=== PATIENT | female | born 1985 | race Caucasian/White ===

== ENCOUNTER → 2019-05-16 16:43 | Outpatient (CLI) | payer OTHER, SELFPAY ==
[2019-05-22 16:17] LABS: HPV Reflexed? NOT INDICATED
== END ==
PROVIDERS: Visit Provider Obstetrics & Gynecology
DX: Z12.4 Encounter for screening for malignant neoplasm of cervix (principal)
CPT/HCPCS: 87624; 88175; G0145

== ENCOUNTER 2024-07-12 06:23 | Day surgery (SDC) | payer BC, SELFPAY ==
--- NOTE | 2024-06-26 18:02 | HP.PCM_ITS ---
History and Physical Date of Admission: 07/12/24 HPI: The patient is a 38 year old female presenting for pre-operative visit. She is scheduled for TLH, bilateral salpingectomy and cystoscopy, for chronic pelvic pain and dysmenorrhea on 07/12/24. Procedure discussed along with risks, benefits and complications. Other alternatives discussed for management. Consent form signed? Yes. PAST MEDICAL HISTORY PAST MEDICAL HISTORY Diagnosis Date ? Adenomyosis of the uterus 02/2024 ? Constipation ? Diarrhea ? Endocervical polyp 02/2024 ? Female infertility unexplained ? GERD (gastroesophageal reflux disease) ? Hemorrhoid ? History of back problems ? Kidney stones ? Osteoarthritis of multiple joints ? Rectal bleeding ? Sciatica ? 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 BREAST LUMPECTOMY HX Left 2015 ? COLONOSCOPY 05/09/2024 ? KIDNEY STONE SURGERY HX 2017 ? TONSILLECTOMY & ADENOIDECTOMY <AGE 10 CURRENT MEDICATIONS Current Outpatient Medications Medication Sig Dispense Refill ? loratadine (CLARITIN) 10 mg tablet ? MULTIVITAMIN ORAL Take by mouth once daily. ? ibuprofen (ADVIL ORAL) Take by mouth as needed (pain). ? ibuprofen/diphenhydramine cit (ADVIL PM ORAL) Take by mouth as needed. ? scopolamine (TRANSDERM-SCOP) patch 1.5 mg/72 hr (delivers 1 mg over 3 days) Apply 1 Patch as directed every 72 hours. (Patient not taking: Reported on 05/21/2024) 1 Patch 0 ? Surgical Lubricant Jelly gel For MRI Female Pelvis, MRI department to provide. Administer intra-vaginal Surgilube immediately prior the MRI procedure (total amount to patient toleranace). (Patient not taking: Reported on 05/21/2024) 31 g 0 ? Lactobacillus acidophilus (FLORAJEN ACIDOPHILUS ORAL) Take 1 tablet by mouth once daily. (Patient not taking: Reported on 05/21/2024) No current facility-administered medications for this visit. ALLERGIES: Codeine, Percocet [Oxycodone-Acetaminophen], Vicodin [Hydrocodone- Acetaminophen], and Ciprofloxacin PERSONAL HISTORY: SOCIAL HISTORY Social History Tobacco Use ? Smoking status: Former Current packs/day: 0.00 Types: Cigarettes Quit date: 2011 Years since quittin.8 ? Smokeless tobacco: Never Vaping Use ? Vaping status: Never Used Substance Use Topics ? Alcohol use: Not Currently ? Drug use: Never FAMILY HISTORY: FAMILY HISTORY FAMILY HISTORY Problem Relation Age of Onset ? Heart Mother Afib REVIEW OF SYMPTOMS: GENERAL: denies fevers or chills ENDOCRINOLOGY: has not been on steroids Cardiology : denies palpitations or chest pain Respiratory: denies SOB or cough Hematology: denies history of prolonged bleeding or easy bruising or VTE Allergy: Denies history of personal or family history of allergy to anesthesia PHYSICAL EXAMINATION: VITALS: Blood pressure 110/60, pulse (!) 58, resp. rate 16, height 167.6 cm (5' 6), weight 63.5 kg (140 lb), last menstrual period 06/12/2024, SpO2 99%. GENERAL: The patient is well nourished, well hydrated in no acute distress. , The patient is oriented to time, place, and person. NECK: Supple. No lynphadenopathy, normal thyroid, no thyromegaly. LUNGS: Clear to auscultation bilaterally. no wheezes, rhonchi or rales HEART: Regular rate and rhythm, Normal heart sounds, and No murmurs or gallops Pelvic US 723: Uterus Uterus: Visualized Uterus position: anteverted Description of uterine malformations: sub-septate Myometrium: heterogeneous Endometrium: normal Cervix details: polyp noted, several large cystic lesions identified suggesting superficial Nabothian cysts Uterus length 79 mm Uterus width 52 mm Uterus height 34 mm Uterus Vol 71.4 cm? Endometrial thickness, total 3.6 mm Fibroids: No fibroids identified Polyps: Polyps identified Uterine polyp D1 12 mm Uterine polyp D2 9 mm Uterine polyp D3 6 mm Uterine polyp mean 9.0 mm Doppler: vascular flow visualized Uterine polyp findings: Anterior cervix Uterine polyp D1 11 mm Uterine polyp D2 9 mm Uterine polyp D3 7 mm Uterine polyp mean 9.0 mm Doppler: vascular flow visualized Uterine polyp findings: Anterior cervix Right Ovary Rt ovary: Visualized Rt ovary morphology: premenopausal normal follicular Rt ovary D1 28 mm Rt ovary D2 17 mm Rt ovary D3 14 mm Rt ovary Vol 3.4 cm? Rt ovarian cyst(s): No cysts identified Rt ovarian follicle D1 11.5 mm Rt ovarian follicle D2 14.6 mm Rt ovarian follicle mean 13.0 mm Rt ovarian follicle vol 1.006 cm? Left Ovary Lt ovary: Visualized Lt ovary morphology: premenopausal normal follicular Lt ovary D1 30 mm Lt ovary D2 15 mm Lt ovary D3 15 mm Lt ovary Vol 3.5 cm? Lt ovarian cyst(s): No cysts identified EMB done, benign endometrial polyp 05/21/24 Pap and HPV neg 03/05/24 IMPRESSION: dysmenorrhea, adenomyosis, septate uterus, chronic pelvic pain PLAN: The risks/benefits/alternatives and personal involved for the planned TLH, bilateral salpingectomy, cystoscopy were reviewed with the patient. Her questions were answered to her satisfaction and she desires to proceed. Consent was signed. I reviewed with her postop instructions and expectations. Pain prescriptions sent to pharmacy at preop. I have reviewed and updated past medical and surgical history, medications and allergies Assessment & Plan Assessment/Plan (1) Dysmenorrhea: (2) Adenomyosis: (3) Septate uterus: (4) Chronic female pelvic pain:
[2024-07-02 07:23] LABS: Hemoglobin 13.9 g/dL (12.0-15.0); Mean Corp Hgb Conc 34.8 g/dL (32-36); Mean Corpuscular Hgb 31.9 pg (27.0-32.0); Mean Corpuscular Volume 91.7 fL (81-99); Mean Platelet Vol. 9.2 fl (6.2-12.0); Platelet Count 220 K/mm3 (150-450); RBC Distribution Width CV 11.9 % (11.6-14.6); RBC Distribution Width SD 40.3 fl (35.1-43.9); Red Blood Count 4.36 M/mm3 (4.2-5.4)
[2024-07-02 08:01] LABS: Anion Gap 5 (5-15); BUN 9 mg/dL (7-18); BUN/Creat Ratio 13.9 RATIO (10-20); Calcium,Total 9.1 mg/dL (8.5-10.1); Chloride 110 mmol/L (98-107); Creatinine, Serum 0.65 mg/dL (0.55-1.02); EST Glomerular Filtration Rate 108 mL/min (>60); Est Glom Filt Rate - Afr Amer 130 mL/min (>60); Glucose 107 mg/dL (74-106); Potassium 4.2 mmol/L (3.5-5.1); Sodium Level 139 mmol/L (136-145)
[2024-07-02 09:15] LABS: Magnesium 2.2 mg/dL (1.6-2.6)
[2024-07-12] VITALS (20 sets, daily range): BP systolic 103–130; BP diastolic 45–87; PULSE 60–123; RESP 11–18; TEMP 36.1–36.9; O2SAT 95–100; BMI 23.4
[2024-07-12] MEDS: Lactated Ringers 1,000 ML 15 ML IV (06:48)
[2024-07-12] MEDS: Magnesium 1 GM over 15 mins IV (06:57)
[2024-07-12] MEDS: Phenazopyridine 95 MG Tablet 190 MG PO (07:02)
[2024-07-12] MEDS: Celecoxib 200 MG Capsule 400 MG PO (07:02)
[2024-07-12] MEDS: Acetaminophen 500 MG Tablet 1000 MG PO (07:02)
[2024-07-12] MEDS: Scopolamine 1mg/72hr Patch 1 PATCH TD (07:03)
[2024-07-12] MEDS: Gabapentin 600 MG Tablet PO (07:03)
[2024-07-12] MEDS: Enoxaparin 40 MG/0.4 ML Syringe SC (07:03)
[2024-07-12 07:13] LABS: Bedside Glucose 91 mg/dL (74-106)
[2024-07-12 07:19] LABS: Internal QC Validated? YES +Cl - CLEAR BKGD; Pregnancy, Urine Negative Negative
--- NOTE | 2024-07-12 08:11 | PCM.POST.ANE ---
Anesthesia: Postop Eval I Current Vital Signs Temperature: 98.4 F Pulse Rate: 90 Blood Pressure: 128/87 Respiratory Rate: 18 Pulse Ox: 100 Oxygen Delivery Method: Room Air Assessment Airway patent: Yes Spontaneous unlabored respirations: Yes Mental status: Asleep nausea: No Vomiting: No Anesthesia Complication: No Fluid Hydration Crystalloid volume administer (ml): 400 Total IV fluid infused: 400 Progress Note Anesthesia document: Postop Eval 1 completed: Yes
--- NOTE | 2024-07-12 08:35 | HYST_PTH ---
PATIENT: SAMREEN BOBO LOC: [facility] – [place] U#:[id number] AGE/SX: 38/F ROOM: RE07/12/[address]: Dr. Lisha Westfall MD : [id number] BED: DIS: 07/12/2024 SPEC #: [id number] RECD: 07/12/24 13:24 STATUS: DAVID AKBAR #: [id number] ARNOL: 07/12/24 08:[address]: Lisha Westfall DEPT: SURGICAL PATHOLOGY RECD BY: Ezekiel Davis ENTERED: 07/12/24 14:41 SP TYPE: HYSTERECT OTHR DR: Dr. Oswald Webb MD No Primary Care Phys Tissues: Uterus, NOS Procedures: Surgery Specimen Level V HEADER OPERATION: Hysterectomy, TLH, bilateral salpingectomy, cystoscopy PRE-OP DIAGNOSIS: Dysmenorrhea, adenomyosis, septate uterus, chronic female pelvic pain TISSUE SUBMITTED: Uterus, bilateral fallopian tubes MICROSCOPIC DIAGNOSIS Uterus, bilateral fallopian tubes, hysterectomy, bilateral salpingectomy: Cervix - Chronic cystic cervicitis. Endometrium - Proliferative endometrium. Myometrium - A small intramural leiomyoma (0.3cm in greatest dimension). Bilateral fallopian tubes- No pathologic diagnosis. Bilateral paratubal cysts. 07/13/2024 MICROSCOPIC DESCRIPTION Slides are reviewed. GROSS DESCRIPTION Received in fixative is one container labeled with the patient's name and designated uterus, cervix, bilateral fallopian tubes. The specimen consists of a hysterectomy specimen consisting of uterus with cervix and detached bilateral fallopian tubes. The uterus with cervix weighs 72.0 gm and measures 8.0 x 6.0 x 3.5 cm. The serosal surface is schwarz glistening. The ectocervical mucosa is unremarkable. The external os is circular in contour. The endocervical canal measures 3.5 cm in length and the endocervical mucosa is schwarz glistening and unremarkable. Sections of the cervix reveal multiple cysts filled with mucoid material. The triangular endometrial cavity measures 4.5 cm in length and 2.5 cm in width. No obvious septation is noted. The endometrium is schwarz, glistening and without any mass lesions measuring 0.1cm in thickness. Sections of the uterine wall do not reveal any mass lesions and measures 1.5cm in thickness. Fallopian tubes are not identified as right or left and measures 5.5cm in length and 0.6cm in diameter and 6.0cm in length and 0.5cm in diameter. Fimbrial ends are identified. Sections reveal unremarkable cut surfaces. One fallopian tube shows two paratubal cysts measuring 0.5 and 0.8cm in greatest dimension. Second fallopian tube also shows two paratubal cysts measuring 0.5 and 0.6cm in greatest dimension. Sections of fallopian tubes show unremarkable cut surfaces. Membership Correspondent sections are submitted in eight cassettes as follows: 1 - anterior cervix, 2 - posterior cervix, 3 & 4 - anterior uterine wall, 5 & 6 - posterior uterine wall, 7-one fallopian tube and paratubal cysts, 8- second fallopian tube and paratubal cysts. SJ: 07/12/2024 TC:5 CPT: 17565
--- NOTE | 2024-07-12 08:42 | PRE.ANES_ITS ---
ASA Classification* ASA Classification ASA Classification: 2 Assessment & Plan Anesthesia* Anesthesia Assessment Anesthesia Assessment: Discussed sedation and/or anesthesia options, risks, benefits, and alternatives with patient/parents/legal guardian/POA. Questions invited. The patient/parents/legal guardian/POA seems to understand and agrees to proceed with anesthesia plan. Reviewed the physical assessment, medical history, allergy history and patient home medications list prior to surgery/procedure/anesthetic and documented any changes. Performed airway and anesthesia risk assessments. Anesthesia Type Anesthesia Type: General Anesthesia Focused Assessment* Temperature: 98.4 F Pulse Rate: 90 Blood Pressure: 128/87 Respiratory Rate: 18 Pulse Ox: 100 Airway Assessment Mouth opens: >3 cm Mallampati Score: II Focused Labs Anesthesia Preop lab: CBC WBC 6.0 K/mm3 (4.4-11.0) 07/02/24 06:36 RBC 4.36 M/mm3 (4.2-5.4) 07/02/24 06:36 Hgb 13.9 g/dL (12.0-15.0) 07/02/24 06:36 Hct 40.0 % (37-47) 07/02/24 06:36 Plt Count 220 K/mm3 (150-450) 07/02/24 06:36 CHEMISTRY Potassium 4.2 mmol/L (3.5-5.1) 07/02/24 06:36 Sodium 139 mmol/L (136-145) 07/02/24 06:36 Magnesium 2.2 mg/dL (1.6-2.6) 07/02/24 06:36 BUN 9 mg/dL (7-18) 07/02/24 06:36 Creatinine 0.65 mg/dL (0.55-1.02) 07/02/24 06:36 Glucose 107 mg/dL (74-106) H 07/02/24 06:36 POC Glucose 91 mg/dL (74-106) 07/12/24 06:51 COAG Urine Test Negative Negative 07/12/24 06:29 Pre-Assessment Diagnosis/Proposed Procedure Planned Operative Procedure(s): (B) ERAS, Hysterectomy,TLH, bilateral salpingectomy, cystoscopy Anesthesia History Anesthesia History - community outreach specialist: Anesthesia History - community outreach specialist Hx Hospitalization No 06/28/24 09:57 Any Problems With Anesthesia Yes: PONV EVEN WITH SCOPE 06/28/24 09:57 PATCH AND ZOFRAN Cholinesterase deficiency No 06/28/24 09:57 You/Your Family Experience No 06/28/24 09:57 fever (hyperthermia) with Relationship Recent Exposure to Contagious No 07/12/24 06:49 Disease Does patient have nerve No 06/28/24 09:57 stimulator Patient instructed to have device shut off --Does patient have Pacemaker No 07/12/24 06:49 or ICD? When Was Last Pacemaker Check QUESTION #4 FULL TEXT: You/Your Family Experience fever (hyperthermia) with Anesthesia Last Oral Intake Last Oral intake: Last Oral Intake NPO since 04:30 07/12/24 06:49 Meds taken in AM with sips of No 07/12/24 06:49 water? Meds patient instructed to take am of surgery PONV PONV - community outreach specialist: PONV - community outreach specialist Female Yes 06/28/24 09:57 HX of Motion Sickness Yes 06/28/24 09:57 HX of N/V After Surgery Yes 06/28/24 09:57 Non-Smoker Yes 06/28/24 09:57 Duration of Surgery greater Yes 06/28/24 09:57 than 60 minutes Number of Risk Factors 5 06/28/24 09:57 PONV Score Severe Risk 06/28/24 09:57 Height & Weight Height & Weight: Anesthesia: Height & Weight Height 5 ft 6 in 07/12/24 06:49 Weight: 65.8 kg 07/12/24 06:49 Body Mass Index (BMI) 23.4 07/12/24 06:49 Respiratory Assessment Respiratory Assessment - community outreach specialist: Respiratory Tract Infection Hx - community outreach specialist Hx Respiratory Tract Infection No 06/28/24 09:57 STOP Sleep Apnea STOP Sleep Apnea - community outreach specialist: STOP Sleep Apnea - community outreach specialist Hx Hypertension No 06/28/24 09:57 Hx Sleep Apnea No 06/28/24 09:57 CPAP BIPAP Do you snore loudly (louder No 06/28/24 09:57 than talking or can be heard Do you often feel tired/ No 06/28/24 09:57 fatigued/ sleepy during daytime? Has anyone observed you stop No 06/28/24 09:57 breathing during sleep? STOP Results Negative 06/28/24 09:57 QUESTION #5 FULL TEXT : Do you snore loudly (louder than talking or can be heard through closed doors)? Tobacco Use History Tobacco Use History - community outreach specialist: Tobacco Use History - community outreach specialist Tobacco Use Smoking Status Former smoker 06/28/24 09:57 Hx Tobacco Use No 06/28/24 09:57 Years Smoking Packs Smoked per Day Smoking Cessation Date was Yes - quit smoking within 15 06/28/24 09:57 within the last 15 years years Hx Smoking Cessation Date 08/22/11 06/28/24 09:57 Hx Smoking Cessation Counseling Hematologic Medial History Hematologic Hx - community outreach specialist: Hematologic Medical Hx - practice administrator Hx of Blood Transfusion No 06/28/24 09:57 Hx of Transfusion in last 3 No 06/28/24 09:57 Months Date of Last Transfusion (if within last 3 months) Ever experience any problems No 06/28/24 09:57 with transfusion(s)? Specify any problems Hx of Preganancy in last 3 N/A 06/28/24 09:57 Months Nurse Filling Out Transfusion NBUCHER 06/28/24 09:57 & Questions: Date: 06/28/24 06/28/24 09:57 Time: 10:00 06/28/24 09:57 Patient unable to answer at this time (ie. confused, unrespo /Reproduction History /Reproductive History - community outreach specialist: /Reproductive Hx- community outreach specialist Hx Now No 06/28/24 09:57 Gestational Age (in weeks): EDC: Hx Hx Para Hx Section SAB No 06/28/24 09:57 Active Medications Active Medications: Current Medications Generic Name Dose Route Start Last Admin Trade Name Freq PRN Reason Stop Dose Admin Lactated Ringer's 1,000 mls @ 40 mls/hr 07/12/24 08:35 IV .Q25H SHARONA Lactated Ringer's 1,000 mls @ 40 mls/hr 07/12/24 09:30 IV .Q25H SHARONA Magnesium Sulfate 1 gm/ 102 mls @ 408 mls/hr 07/12/24 08:35 07/12/24 06:57 Dextrose IV 07/12/24 08:49 408 mls/hr X1 ONE Administration Lactated Ringer's 1,000 mls @ 15 mls/hr 07/12/24 06:45 07/12/24 06:48 IV 07/15/24 01:24 15 mls/hr .Q48H SHARONA Administration Protocol Insulin Human Lispro 0 unit 07/12/24 08:35 Insulin Lispro 100 Unit/Ml Insuln.Pen SC 07/12/24 14:30 Q4H PRN PRN BG >/= 180, SEE PROTOCOL Protocol Ondansetron HCl 4 mg 07/12/24 09:00 Ondansetron 4 Mg/2 Ml Vial IV 07/12/24 09:01 X1 ONE PFSH Medical History PONV (postoperative nausea and vomiting) Wears glasses Anxiety Arthritis History of kidney stones History of IBS GERD (gastroesophageal reflux disease) Former smoker Home Medications ?Medication ?Instructions ?Recorded ?Last Taken ?Type ibuprofen 200 mg capsule 200 mg PO Q8H PRN pain 06/28/24 Unknown History ibuprofen-diphenhydramine citrate 1 cap PO QHS PRN sleep 06/28/24 Unknown History 200 mg-38 mg tablet (Advil PM) loratadine 10 mg tablet 10 mg PO DAILY 06/28/24 Unknown History (Allerclear) melatonin 1 mg chewable tablet 1 mg PO QHS PRN sleep 06/28/24 Unknown History multivitamin (Daily Multi-Vitamin 1 tab PO DAILY 06/28/24 Unknown History tablet) Allergy/AdvReac Type Severity Reaction Status Date / Time ciprofloxacin AdvReac Severe Nausea/Vom/ Verified 07/12/24 06:46 Diarrhea codeine AdvReac Severe Nausea/Vom/ Verified 07/12/24 06:46 Diarrhea hydrocodone AdvReac Severe Nausea/Vom/ Verified 07/12/24 06:46 Diarrhea oxycodone AdvReac Severe Nausea/Vom/ Verified 07/12/24 06:46 Diarrhea Surgical History History of tonsillectomy and adenoidectomy History of colonoscopy History of lumpectomy of left breast (~2015) Social History Smoking Status: Former smoker Review of Systems (Anesthesia) ROS Narrative System reviewed and no additional complaints, except as documented.
[2024-07-12] MEDS: Cefazolin 2 GM in Syringe IV (08:53)
[2024-07-12] MEDS: dexAMETHasone 4 MG/ML Vial 8 MG IV (09:00)
[2024-07-12] MEDS: Bupivacaine Mpf 0.5% 30 ML VIAL (09:17)
[2024-07-12] MEDS: Lubricating Jelly 60 GM Tube 30 GM (09:17)
[2024-07-12] MEDS: Ondansetron 4 MG/2 ML Vial IV (10:27)
--- NOTE | 2024-07-12 10:31 | PCM.OPRPT ---
Problems Associated Problem List Diagnoses (1) Chronic female pelvic pain: (2) Septate uterus: (3) Adenomyosis: (4) Dysmenorrhea: (5) Endometriosis: Operative Report (Standard) Operative Information Surgery/Procedure Performed: TLH, bilateral salpingectomy and cystoscopy Surgeon: Lisha Westfall Date of Procedure: 07/12/24 Procedure Start Time: 09:17 Procedure Stop Time: 10:31 Pre-Operative Diagnosis: dysmenorrhea, adenomyosis, chronic pelvic pain, sepatate uterus Post-Operative Diagnosis: same + peritoneal endometriosis and left ovarian surface endometriosis Select all DRAINS/GRAFTS/IMPLANTS that apply: None Type of Anesthesia: General Special Medications: none Estimated Blood Loss: 50 Fluids Replaced: 1200 Specimen collected: Yes Description of specimen(s) removed: uterus, cervix, bilateral fallopian tubes. Description of surgery: The patient was taken to the operating room where she was prepped and draped in the dorsal lithotomy position. Her arms were tucked to the side and padded and her legs were placed in the yellowfin stirrups. Care was taken to ensure that she was placed in a neurologically safe and neutral position. A weighted speculum was placed in the vagina and the anterior lip of the cervix was grasped with a single-tooth tenaculum. The cervix sounded to 8 centimeters. 2-0 Vicryl sutures were secured to the cervix at 3 and 9:00. The 3 cm uterine feature writer was placed into the cervix and the balloon inflated. The stay sutures were placed through the cup and secured down to the cervix. Once the feature writer was secured to the cervix the Portillo catheter was placed to straight drain. Attention was turned to the abdominal portion of the case. Before skin incisions were made they were infiltrated with 0.5% Marcaine solution for local anesthetic. A 5 mm intraumbilical incision was made and while tenting the anterior abdominal wall up with towel clamps a 5 mm blade less trocar and sleeve were advanced directly into the peritoneal cavity using the Visiport. Peritoneal placement was confirmed with the laparoscope the pneumoperitoneum was created, and the underlying abdominal contents were intact. The patient was placed in Trendelenburg and the above findings were noted. Right and left lateral 5 mm trochars were placed under direct visualization without difficulty. The antimesenteric portion of the tube was clamped sealed and transected serially on both sides with the LigaSure device. The round ligaments were clamped sealed and transected and a window was made in the peritoneum. The utero-ovarian ligaments were then clamped sealed and transected with the LigaSure device and the pedicles were hemostatic The bladder flap was dissected down with the LigaSure device and blunt dissection and the uterine arteries were then skeletonized. The uterine arteries were clamped sealed and transected on both sides with the LigaSure device. Then along the cardinal ligament uterine arteries adjacent to the cervix were clamped sealed and transected with the LigaSure device to move them away from the vaginal cuff angle. At this point the pedicles were all examined and found to be hemostatic. The bladder flap was rechecked and found to be adequately down. The monopolar tip of the LigaSure device was then used to enter the anterior vagina. The vaginal manipulator cup was noted in the vaginal colpotomy incision was made circumferentially around the cup. When the 3 and 9:00 positions of the cervicovaginal junction were reached these were clamped sealed and transected with the LigaSure device to secure any small remaining vessels. At this point the pedicles were hemostatic from above and attention was turned to the vaginal portion of the case again. The uterus was brought intact out through the vaginal colpotomy incision along with the tubes There is some bleeding from the left vaginal cuff angle and this was grasped with an Renée clamp and a suture ligature was placed around it. A modified Marie suture was placed with a 3-0 PDS suture. The suture was placed through the posterior vaginal cuff into the peritoneal cavity and reefed across both sides the peritoneal cavity to the uterosacral ligaments brought back out through the midline of the vaginal cuff. Vaginal angle sutures were placed on both sides with 0 Vicryl sutures and care was taken to ensure that the uterosacral ligament was secured into this stitch. The remainder the vagina was then closed horizontally with interrupted 0 Vicryl sutures. The PDS suture was tied down. The cuff was hemostatic vaginally. The Portillo catheter was removed and a cystoscopy was performed. The bladder appeared normal and was intact. Both ureteral orifices were noted and both ureteral jets were seen. The cystoscope was removed and the Portillo catheter was placed back to straight drain. A sponge stick was placed in the vagina to help place traction against the vaginal cuff and the pneumoperitoneum was re-created. The pedicles were reexamined and found to be hemostatic. The vaginal cuff was hemostatic. Some Hemablast was placed over the cuff and the pedicles and no active bleeding was noted through the Hemablast. The right and left lateral ports were taken out and the sites were hemostatic. The pneumoperitoneum was released and even under low pressure there was no bleeding of any of the pedicles are vaginal cuff. The umbilical port was removed. The umbilical skin incisions were closed with Monocryl suture and skin glue by Dr. Uriostegui. The vaginal instruments were removed by me and a vaginal sweep was completed by me. The surgery was performed by me with assistance other than the portions dictated as above. There were no qualified residents available for this procedure. All sponge lap and needle counts were correct and the patient was transferred to the recovery room in stable condition. Surgical Findings: Approx 10 small brown lesions on ovarian fossa and posterior culdesac < 5 mm and one 7 mm size lesion on surface of left ovary c/w endometriosis, normal tubes and uterus, normal cervix and vagina Blow Molding Machine Tender balancer: Yes Taker Off Hemp Fiber: Christina Kendrick Tasks completed by engineer first assistant: Opening, Closing, Removing tissue, Hemostasis: Electrocautery and Retracting Additional recovery assistant?: No Complications Complications: No Admit VTE Documentation VTE Present on Admission: No VTE Mechan Device Prophylaxis: SCD's VTE Pharm Prophylaxis ordered?: Yes
--- NOTE | 2024-07-12 10:56 | PCM.POST.ANE ---
Anesthesia: Postop Eval I Current Vital Signs Temperature: 97.8 F Pulse Rate: 64 Blood Pressure: 108/66 Respiratory Rate: 16 Pulse Ox: 100 Oxygen Delivery Method: Simple Mask Oxygen Flow Rate (L/min): 6 Assessment Airway patent: Yes Spontaneous unlabored respirations: Yes Mental status: Asleep nausea: No Vomiting: No Anesthesia Complication: No Fluid Hydration Crystalloid volume administer (ml): 1,000 Total IV fluid infused: 1,000 Progress Note Anesthesia document: Postop Eval 1 completed: Yes
--- NOTE | 2024-07-12 14:46 | DCINST_ITS ---
Discharge Instructions Diet Discharge Diet: Light diet - advance as tolerated Activity Discharge Activity: May Drive (When no longer on pain medications or approximately 1 week) May shower in (days): 1 May resume sexual activity in: 6-8 weeks and - (Nothing in your vagina for 6 weeks. No vaginal or anal intercourse for 6-8 weeks) Additional Activity Instructions:: lifting restriction 15 lbs x 6 weeks Dressing / Incision Call your doctor if your incision/area has: Continuous Slow Oozing, Sudden Increased Bleeding and Foul Smelling Discharge Call your doctor if you observe: Fever of 101 or Higher and Using more than 1 pad per hour Cleanse incision/area with: Soap & Water and - (Your incisions have skin glue, it can get wet, leave the glue on until it falls off. ) Follow Up Care Please Follow Up With: Lisha Westfall MD When: With my office in 1-2 and 6 weeks or as needed. [phone] call or send a [employer] message with questions Test Results: Test results from this visit will be discussed in further detail at your follow- up appointment, if applicable. Discharge Plan Admission Primary Reason for Your Visit: Total laparoscopic hysterectomy with bilateral salpingectomy and cystoscopy Attending Provider: Lisha Westfall Primary Care Provider: Care Physician,No Primary Consulting Providers: Oswald Webb Instructions Print Language: Bengali Discharge Orders/Prescriptions Prescriptions: New ibuprofen 600 mg tablet 600 mg PO Q6H PRN (Reason: Pain) Qty: 60 1RF oxycodone 5 mg tablet 5 mg PO Q8H PRN (Reason: severe pain) 7 Days Qty: 12 0RF Continued loratadine [Allerclear] 10 mg tablet 10 mg PO DAILY multivitamin [Daily Multi-Vitamin] Tablet 1 tab PO DAILY melatonin 1 mg tablet,chewable 1 mg PO QHS PRN (Reason: sleep) Held Advil PM 200-38 mg tablet 1 cap PO QHS PRN (Reason: sleep) Hold Instructions: Resume on 08/09/24. ibuprofen 200 mg capsule 200 mg PO Q8H PRN (Reason: pain) Hold Instructions: Resume on 08/10/24. Disposition Disposition (needs filled in before D/C Order can be placed): Home, Self Care
--- NOTE | 2024-07-12 17:02 | POSTOPAN2_ITS ---
Anesthesia Postop Eval I Sum Postop Eval Completion status Anesthesia document: Postop Eval 1 completed: Yes Anesthesia Postop Eval I Summary Anesthesia Postop Eval I Summary: Anesthesia Postop Eval I: Assessment Summary Airway patent Yes 07/12/24 10:57 MANAGER LATIN.JADEOBY Spontaneous unlabored Yes 07/12/24 10:57 MANAGER LATIN.TESSA respirations Mental status Asleep 07/12/24 10:57 MANAGER LATIN.JADEOBNatalee nausea No 07/12/24 10:57 MANAGER LATIN.JADEOBNatalee Vomiting No 07/12/24 10:57 MANAGER LATIN.JADEOBNatalee Anesthesia Postop Eval I: Fluid Summary Crystalloid volume administer 1,000 07/12/24 10:57 MANAGER LATIN.SKOBY (ml) Colloids volume administered ( ml) Blood Product volume administered (ml) Total IV fluid infused 1,000 07/12/24 10:57 MANAGER LATIN.TESSA Anesthesia Postop Eval I: Summary Notes Anesthesia Complication No 07/12/24 10:57 MANAGER LATIN.TESSA Anesthesia Complication Comment: Post-operative progress note Anesthesia: Postop Eval II Evaluation Mental status: Awake and Calm Pain Level: 2 nausea: No Vomiting: No Complications Anesthesia Complication: No
--- NOTE | 2024-07-12 17:02 | PCM.POSTANE2 ---
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.JADEOBY Spontaneous unlabored Yes 07/12/24 10:57 HARNESS AND BAG INSPECTOR.TESSA respirations Mental status Asleep 07/12/24 10:57 HARNESS AND BAG INSPECTOR.JADEOBNatalee nausea No 07/12/24 10:57 HARNESS AND BAG INSPECTOR.JADEOBNatalee Vomiting No 07/12/24 10:57 HARNESS AND BAG INSPECTOR.JADEOBNatalee Anesthesia Postop Eval I: Fluid Summary Crystalloid volume administer 1,000 07/12/24 10:57 HARNESS AND BAG INSPECTOR.SKOBY (ml) Colloids volume administered ( ml) Blood Product volume administered (ml) Total IV fluid infused 1,000 07/12/24 10:57 HARNESS AND BAG INSPECTOR.TESSA Anesthesia Postop Eval I: Summary Notes Anesthesia Complication No 07/12/24 10:57 HARNESS AND BAG INSPECTOR.TESSA Anesthesia Complication Comment: Post-operative progress note Anesthesia: Postop Eval II Evaluation Mental status: Awake and Calm Pain Level: 2 nausea: No Vomiting: No Complications Anesthesia Complication: No
== END 2024-07-12 16:02 | disposition home or self-care (01) ==
LOC: SDC 06:26 → AC 06:26
PROVIDERS: Anesthesiology; Referring Provider Obstetrics & Gynecology; Visit Provider Obstetrics & Gynecology
PROC: 0UT94ZZ Resection of Uterus, Percutaneous Endoscopic Approach (ICD-10-PCS; CPT 58571; principal; 2024-07-12 08:15)
DX: N94.6 Dysmenorrhea, unspecified (principal); N80.30 Endometriosis of pelvic peritoneum, unspecified; N80.112 Superficial endometriosis of left ovary; N80.03 Adenomyosis of the uterus; Q51.28 Other and unspecified doubling of uterus; G89.29 Other chronic pain; Z87.891 Personal history of nicotine dependence
CPT/HCPCS: 58571; 36415; 80048; 81025; 82962; 83735; 85027; 88307; J7120; J2405; J3475

== ENCOUNTER → 2025-04-09 | Outpatient (CLI) | payer BC, SELFPAY ==
[2025-04-09 11:22] LABS: EXAGEN MAILED SPECIMEN
[2025-04-09 12:33] LABS: Hematocrit 40.6 % (37-47); Hemoglobin 14.2 g/dL (12.0-15.0); Immature Granulocytes Count 0.010 X10^3/uL (0.0-0.0); Mean Corp Hgb Conc 35.0 g/dL (32-36); Mean Corpuscular Volume 92.5 fL (81-99); Mean Platelet Vol. 8.9 fl (6.2-12.0); NRBC Flagged by Analyzer 0 % (0-5); Platelet Count 258 K/mm3 (150-450); RBC Distribution Width CV 11.8 % (11.6-14.6); RBC Distribution Width SD 40.4 fl (35.1-43.9); Red Blood Count 4.39 M/mm3 (4.2-5.4); White Blood Count 6.2 K/mm3 (4.4-11.0)
[2025-04-09 12:54] LABS: Creatinine, Urine (random) 238.00 mg/dL (28.00-217.00); Protein, Urine (Random) 30.2 mg/dL (0.0-12.0); Protein:Creat Ratio 127 mg/g CRE (0-200)
[2025-04-09 13:19] LABS: Hepatitis B Surface Antigen Nonreactive (Nonreactive); Hepatitis C Antibody Nonreactive (Nonreactive)
[2025-04-09 13:20] LABS: AST(SGOT) 16 U/L (<=31); Alanine Aminotransfer ALT/SGPT 17 U/L (<=34); Albumin, Serum 4.8 g/dL (3.5-5.0); Alkaline Phosphatase 55 U/L (35-104); Anion Gap 13 (5-15); BUN 10 mg/dL (4-19); BUN/Creat Ratio 15.9 RATIO (10-20); Calcium,Total 9.7 mg/dL (7.6-11.0); Carbon Dioxide 24.1 mmol/L (21.0-32.0); Chloride 103 mmol/L (98-108); Globulin 2.8 g/dL (2.2-4.2); Glucose 91 mg/dL (70-99); Potassium 4.7 mmol/L (3.3-5.1)
[2025-04-09 22:24] LABS: Color, Urine Yellow (Yellow); Glucose, Dipstick Normal (Normal); Ketone-Dipstick 50 mg/dl (Negative); Leukocyte Esterase-Dipstick 25 /ul (Negative); Nitrite-Dipstick Negative (Negative); Occult Blood-Urine 25 /ul (Negative); Protein-Dipstick 15 mg/dl (Negative); Specific Gravity, Urine 1.025 (1.002-1.030); Urine Bilirubin Dipstick Negative (Negative)
[2025-04-12 08:09] LABS: Dilute Russell Viper Venom 35.5 sec (0.0-47.0); Hexagonal Phase Phospholipid 2 7 sec (0-11); Interpretation Comment: (.); PTT-LA 45.2 sec (0.0-43.5)
== END | disposition home or self-care (01) ==
LOC: MTLAB 10:16
PROVIDERS: PCP Nurse Practitioner Family; Referring Provider Internal Medicine Rheumatology; Visit Provider Internal Medicine Rheumatology
DX: R76.8 Other specified abnormal immunological findings in serum (principal); M06.4 Inflammatory polyarthropathy; M79.7 Fibromyalgia
CPT/HCPCS: 36415; 80053; 81002; 82570; 84156; 85025; 86706; 86803; 87340